=== PATIENT | male | born 1980 ===

== ENCOUNTER 2018-02-10 17:51 | Emergency (ER) | payer SELFPAY ==
[2018-02-10 18:35] VITALS: BP 144/80; PULSE 60; RESP 16; TEMP 98.4; O2SAT 100
--- NOTE | 2018-02-10 19:42 | ED PDOC ---
HPI: Eye Injury/Pain Time Seen by Provider: 02/10/18 19:22 Chief Complaint (Nursing): Eye Problem Chief Complaint (Provider): Eye Problem History Per: Patient History/Exam Limitations: no limitations Current Symptoms Are (Timing): Still Present Associated Symptoms: Pain, Discharge From Eye Additional Complaint(s): 37 y/o male presents to the ED for a corneal abrasion. Patient recalls cutting wood and felt like a piece of wood hit him in his left eyes. His eye is red, teary and is having difficulty opening his left eye. Otherwise, patient denies any other symptoms. PMD: non provided Past Medical History Reviewed: Historical Data, Nursing Documentation, Vital Signs Vital Signs: Last Vital Signs Temp 98.4 F 02/10/18 18:33 Pulse 60 02/10/18 18:33 Resp 16 02/10/18 18:33 BP 144/80 02/10/18 18:33 Pulse Ox 100 02/10/18 18:33 - Medical History PMH: No Chronic Diseases - Surgical History Surgical History: No Surg Hx - Family History Family History: States: Unknown Family Hx - Allergies Allergies/Adverse Reactions: Allergies Allergy/AdvReac Type Severity Reaction Status Date / Time No Known Allergies Allergy Verified 02/10/18 18:33 Review of Systems ROS Statement: Except As Marked, All Systems Reviewed And Found Negative Eyes: Positive for: Redness, Other (teary and difficulty opening left eye) Physical Exam - Reviewed Nursing Documentation Reviewed: Yes Vital Signs Reviewed: Yes - Physical Exam Appears: Positive for: Well, No Acute Distress Head Exam: Positive for: ATRAUMATIC, NORMAL INSPECTION, NORMOCEPHALIC Skin: Positive for: Normal Color, Warm, Dry Eye Exam: Positive for: PERRL, Conjunctival injection (tearing to the left eye), Other (eyelid was inverted no obvious foreign bodies seen in upper or lower ). Negative for: Normal appearance (no hyphema) Neurologic/Psych: Positive for: Alert, Oriented (x3). Negative for: Motor/Sensory Deficits - ECG O2 Sat by Pulse Oximetry: 100 (RA) Pulse Ox Interpretation: Normal Medical Decision Making Medical Decision Making: Time: -Patient will be given fluorescien drops and a visual acuity test. Flourescein uptake at 9o'clock position visual acuity: right 20/70, left 20/100. both 20/70. Pt. did not have his corrective glasses with him. Tobrex drops instilled in left eye with instruction to continue 1-2 drops left eye qid x 1 week. f/u with optho. Scribe Attestation: Documented by Kristy Guerrero , acting as a scribe for Radhika Sorto. Provider Scribe Attestation: All medical record entries made by the Scribe were at my direction and personally dictated by me. I have reviewed the chart and agree that the record accurately reflects my personal performance of the history, physical exam, medical decision making, and the department course for this patient. I have also personally directed, reviewed, and agree with the discharge instructions and disposition. Disposition - Clinical Impression Clinical Impression: Corneal abrasion - Disposition Referrals: Alan Ferreira MD [Staff Provider] - Disposition: Routine/Home Disposition Time: 20:43 Condition: STABLE Additional Instructions: continue eye drops 1-2 drops left eye four times per day x 1 week Instructions: Corneal Abrasion (DC) Forms: [employer] ([place]), [facility] ED School/Work Excuse
[2018-02-10] MEDS ORDERED: Fluorescein 1 mg Ophthalmic Strip ONE (19:54)
[2018-02-10] MEDS ORDERED: Tetanus/Diphtheria Toxoids 0.5 ml Syringe IM ONE (20:03)
[2018-02-10] MEDS ORDERED: Tdap Vaccine 0.5 ml Vial (10-64 yrs) IM ONE (20:07)
[2018-02-10] MEDS ORDERED: Tobramycin 0.3% OPHT SOLN OS ONE (20:15)
== END 2018-02-10 21:06 | disposition home or self-care (01) ==
LOC: H.ER 17:51
DX: S05.02XA Injury of conjunctiva and corneal abrasion without foreign body, left eye, initial encounter (principal); Y92.89 Other specified places as the place of occurrence of the external cause